=== PATIENT | female | born 1945 | race African-American/Black ===

== ENCOUNTER 2022-06-24 10:52 | Inpatient (IN) | payer OTHER ==
[~2022-06-24] VITALS: Ht 172.7 cm; Wt 40.8 kg
[2022-06-24] MEDS ORDERED: CLONIDINE 0.1MG TABLET PO PRN (17:00)
[2022-06-24] MEDS ORDERED: ONDANSETRON HCL 4MG/2ML INJ IV PRN (17:00)
[2022-06-24] MEDS ORDERED: ACETAMINOPHEN 325MG TABLET PO PRN ×2 (17:00)
[2022-06-24] MEDS ORDERED: DOCUSATE SODIUM 100MG CAPSULE PO PRN (17:00)
[2022-06-24] MEDS ORDERED: IPRATROPIUM/ALBUTEROL 0.5-3(2.5)MG/3ML NEB HHN PRN (17:00)
[2022-06-24] MEDS ORDERED: GUAIFENESIN 200MG/10ML SUGAR FREE UDC PO PRN (17:00)
[2022-06-24] MEDS ORDERED: NA PHOS,M-B/NA PHOS,DI-BA ENEMA 118ML PR PRN (17:00)
[2022-06-24 17:59] LABS: BASOPHILS % 0.3 % (0.0-2.0); EOSINOPHILS % 0.1 % (0.0-5.0); HEMATOCRIT. 39.4 % (36.0-48.0); HEMOGLOBIN. 13.1 g/dL (12.0-16.0); LYMPHOCYTES % 13.4 % (20.0-50.0); MEAN CORPUSCULAR HEMOGLOBIN 28.7 pg (28.0-32.0); MEAN CORPUSCULAR VOLUME 86.6 fL (81.0-99.0); MEAN PLATELET VOLUME 8.8 fl (7.4-10.4); MONOCYTES % 3.8 % (2.0-8.0); NEUTROPHILS % 82.4 % (40.0-76.0); PLATELET 183 x1000/uL (130-400); RED BLOOD CELL COUNT 4.55 mill/uL (4.2-5.4); RED CELL DISTRIBUTION WIDTH 14.4 % (11.6-14.6)
[2022-06-24 18:07] LABS: CHLORIDE 97 mEq/L (98-107)
[2022-06-24] MEDS: FAMOTIDINE 20MG TABLET PO SCH (20:38)
[2022-06-24] MEDS: DEXT 5%/0.9% NACL 1,000 ML IV SCH (20:45)
[2022-06-24] MEDS ORDERED: VANCOMYCIN 1G PREMIX 200 ML IV NR (22:00)
[2022-06-24 22:44] VITALS: BP 113/63
[2022-06-25] VITALS: BP 129/71
[2022-06-25] MEDS: PIPERACILLIN/TAZOBACTAM 3.375 G in DEXTROSE 5% WATER 50 ML IV SCH ×2 (00:58→06:15)
[2022-06-25 04:00] VITALS: BP 134/73
[2022-06-25 08:00] VITALS: BP 103/58
[2022-06-25 08:00] LABS: BASOPHILS % 0.5 % (0.0-2.0); EOSINOPHILS % 0.4 % (0.0-5.0); HEMATOCRIT. 34.4 % (36.0-48.0); HEMOGLOBIN. 11.3 g/dL (12.0-16.0); LYMPHOCYTES % 13.2 % (20.0-50.0); MEAN CORPUSCULAR HEMOGLOBIN 28.5 pg (28.0-32.0); MEAN CORPUSCULAR VOLUME 86.3 fL (81.0-99.0); MEAN PLATELET VOLUME 9.1 fl (7.4-10.4); MONOCYTES % 5.5 % (2.0-8.0); NEUTROPHILS % 80.4 % (40.0-76.0); PLATELET 165 x1000/uL (130-400); RED BLOOD CELL COUNT 3.98 mill/uL (4.2-5.4); RED CELL DISTRIBUTION WIDTH 14.2 % (11.6-14.6)
[2022-06-25 08:24] LABS: PHOSPHORUS 2.7 mg/dL (2.5-4.9); T4 FREE 1.07 ng/dL (0.76-1.46)
[2022-06-25 09:04] LABS: VITAMIN B12 SERUM 1129 pg/mL (211-911)
[2022-06-25 09:39] LABS: BG BASE EXCESS 5.8 mmol/L (-2.0-2.0); BG CARBOXYHEMOGLOBIN 1.5 % (0.5-1.5); BG DEOXYHEMOGLOBIN 2.3 % (0.0-5.0); BG FRACTION INSPIRED OXYGEN 21; BG HCO3 ACT 30.4 mmol/L (22.0-26.0); BG OXYGEN SATURATION 97.7 % (92.0-98.5); BG OXYHEMOGLOBIN 96.2 % (94.0-97.0); BG PCO2 44.3 mmHg (35.0-45.0); BG PH 7.455 (7.350-7.450); BG PO2 94.2 mmHg (75.0-100.0); BG SAMPLE SITE RIGHT RADIAL; BG TOTAL HEMOGLOBIN 12.6 g/dL (12.0-18.0); BG VENT MODE ROOM AIR
[2022-06-25 09:50] LABS: D-DIMER 2.92 mg/L FEU (<0.50); INR 0.9; PROTHROMBIN TIME 10.2 sec (9.6-11.0)
[2022-06-25] MEDS: ENOXAPARIN 30MG/0.3ML SYR SUBCUT SCH (09:52)
[2022-06-25] MEDS ORDERED: POTASSIUM CHLORIDE 20MEQ TABLET SR PO SCH (10:00)
[2022-06-25] MEDS: DEXT 5%/0.9% NACL 1,000 ML IV SCH ×2 (10:05→23:58)
[2022-06-25 12:00] VITALS: BP 116/57
[2022-06-25] MEDS ORDERED: PIPERACILLIN/TAZOBACTAM 3.375 G in DEXTROSE 5% WATER 50 ML IV SCH ×4 (14:00)
[2022-06-25 16:00] VITALS: BP 103/58
[2022-06-25 20:00] VITALS: BP 134/72
[2022-06-25] MEDS: FAMOTIDINE 20MG TABLET PO SCH (21:49)
[2022-06-25] MEDS ORDERED: VANCOMYCIN 750MG PREMIX 150 ML IV SCH (22:00)
[2022-06-26] VITALS (9 sets, daily range): BP systolic 108–152; BP diastolic 62–84
[2022-06-26 07:14] LABS: BASOPHILS % 0.4 % (0.0-2.0); EOSINOPHILS % 1.6 % (0.0-5.0); HEMATOCRIT. 32.5 % (36.0-48.0); HEMOGLOBIN. 10.8 g/dL (12.0-16.0); LYMPHOCYTES % 26.8 % (20.0-50.0); MEAN CORPUSCULAR HEMOGLOBIN 28.6 pg (28.0-32.0); MEAN PLATELET VOLUME 8.8 fl (7.4-10.4); MONOCYTES % 8.2 % (2.0-8.0); PLATELET 161 x1000/uL (130-400); RED BLOOD CELL COUNT 3.78 mill/uL (4.2-5.4); RED CELL DISTRIBUTION WIDTH 14.2 % (11.6-14.6)
[2022-06-26 07:22] LABS: CHLORIDE 103 mEq/L (98-107)
[2022-06-26] MEDS ORDERED: POTASSIUM CHLORIDE 20MEQ TABLET SR PO SCH (08:00)
[2022-06-26] MEDS: ENOXAPARIN 30MG/0.3ML SYR SUBCUT SCH (10:43)
== END 2022-06-26 20:41 | disposition home or self-care (01) | DRG 640 ==
LOC: ER 10:52 → EDBEDREQ 13:33 → EDBD 19:05 → 6EST 19:05 → EDBEDREQTM 19:21 → EDBEDREQ 19:21 → ENRESERV 20:27
PROVIDERS: ADMIT Internal Medicine; ATTEND Internal Medicine
DX: E86.0 Dehydration (principal); E43 Unspecified severe protein-calorie malnutrition; G93.41 Metabolic encephalopathy; Z68.1 Body mass index [BMI] 19.9 or less, adult; A04.72 Enterocolitis due to Clostridium difficile, not specified as recurrent; E87.1 Hypo-osmolality and hyponatremia; E87.4 Mixed disorder of acid-base balance; E87.3 Alkalosis; R62.7 Adult failure to thrive; Z20.822 Contact with and (suspected) exposure to COVID-19; E87.6 Hypokalemia; E88.09 Other disorders of plasma-protein metabolism, not elsewhere classified; I10 Essential (primary) hypertension; D64.9 Anemia, unspecified; J01.90 Acute sinusitis, unspecified; F03.90 Unspecified dementia, unspecified severity, without behavioral disturbance, psychotic disturbance, mood disturbance, and anxiety; E87.8 Other disorders of electrolyte and fluid balance, not elsewhere classified; Z86.73 Personal history of transient ischemic attack (TIA), and cerebral infarction without residual deficits; Z74.01 Bed confinement status
CPT/HCPCS: 36415; 36600; 71045; 80048; 80053; 80061; 82270; 82375; 82607; 82805; 83605; 83735; 83880; 84100; 84145; 84439; 84443; 84484; 85025; 85379; 87426; 87493; 87804; 92610; 93970; 97162; 97166; 97535; 99285; A6261; C9803; J1650; J2543; J3370; J7060; A4315